=== PATIENT | female | born 1985 | race Caucasian/White ===

== ENCOUNTER 2019-06-05 10:57 | Emergency (ER) | payer OTHER ==
[~2019-06-05] VITALS: Ht 157.5 cm; Wt 59.0 kg
[~2019-06-05 10:57] MED LIST: AUGMENTIN 500-1 EACH PO; FLAGYL500 MG PO; IBUPROFEN 600600 M1 PO; ULTRAM 50MG TAB50 MG PO
[2019-06-05 12:29] VITALS: BP 110/76
== END 2019-06-05 12:30 | disposition home or self-care (01) ==
LOC: M.ERS 10:57
DX: F15.99 Other stimulant use, unspecified with unspecified stimulant-induced disorder (principal); F31.9 Bipolar disorder, unspecified; F41.9 Anxiety disorder, unspecified; F17.210 Nicotine dependence, cigarettes, uncomplicated; Z32.02 Encounter for pregnancy test, result negative